=== PATIENT | female | born 1985 | race Caucasian/White ===

== ENCOUNTER 2016-09-27 21:12 | Emergency (ER) | payer OTHER | END 2016-09-27 22:08 | disposition home or self-care (01) | LOC: ER 21:12 | DX: J02.9 Acute pharyngitis, unspecified (principal); R42 Dizziness and giddiness; R05 Cough; F17.210 Nicotine dependence, cigarettes, uncomplicated | CPT/HCPCS: 87070; 87400; 87880; 99282 ==

== ENCOUNTER 2016-10-15 15:44 | Observation (INO) | payer OTHER ==
[~2016-10-15] VITALS: Ht 167.6 cm; Wt 131.0 kg
[2016-10-15 16:31] LABS: BASO % 0.2 % (0.1-1.2); EOS # 0.1 10_X3_uL (0.0-0.4); EOS % 0.7 % (0.7-5.8); GRAN # 5.4 10_X3_uL (1.6-6.1); GRAN % 66.6 % (34.0-71.1); HEMOGLOBIN 15.3 g/dL (11.2-15.7); LYMPH # 2.3 10_X3_uL (1.2-3.7); LYMPH % 27.5 % (19.3-51.7); MEAN CORPUSCULAR HEMOGLOBIN 31.7 pg (27.0-33.0); MEAN CORPUSCULAR HGB CONC 34.8 g/dL (32.0-36.0); MEAN CORPUSCULAR VOLUME 91.3 fL (79-95); MEAN PLATELET VOLUME 9.9 fl (7.5-11.5); MONO # 0.4 10_X3_uL (0.2-0.9); PLATELET COUNT 207 x10_3/uL (182-369); RED BLOOD COUNT 4.82 x10_6/uL (3.9-5.2); RED CELL DISTRIBUTION WIDTH 13.7 % (11.7-14.4); WHITE BLOOD COUNT 8.2 x10_3/uL (4.0-10.0)
[2016-10-15 16:48] LABS: ALBUMIN 3.8 gm/dL (3.4-5.0); ALKALINE PHOSPHATASE 65 U/L (50-136); ALT/SGPT 47 U/L (3.5-33.9); AST/SGOT 34 U/L (7.04-26.96); BILIRUBIN,TOTAL 0.43 mg/dL (0.0-1.0); BLOOD UREA NITROGEN 10 mg/dL (7-18); CALCIUM 9.1 mg/dL (8.7-10.7); CARBON DIOXIDE 23 mmol/L (21-32); CREATININE 0.7 mg/dL (0.6-1.3); GLUCOSE,RANDOM 138 mg/dL (70-99); POTASSIUM 4.2 mmol/L (3.5-5.1); SODIUM 136 mmol/L (136-145); TOTAL PROTEIN 7.1 gm/dL (6.4-8.2)
[2016-10-17 06:41] LABS: BASO % 0.1 % (0.1-1.2); EOS # 0.1 10_X3_uL (0.0-0.4); EOS % 1.4 % (0.7-5.8); GRAN # 4.6 10_X3_uL (1.6-6.1); GRAN % 64.3 % (34.0-71.1); HEMATOCRIT 38.2 % (34-45); HEMOGLOBIN 12.7 g/dL (11.2-15.7); LYMPH # 2.1 10_X3_uL (1.2-3.7); LYMPH % 29.5 % (19.3-51.7); MEAN CORPUSCULAR HEMOGLOBIN 31.3 pg (27.0-33.0); MEAN CORPUSCULAR HGB CONC 33.2 g/dL (32.0-36.0); MEAN CORPUSCULAR VOLUME 94.1 fL (79-95); MEAN PLATELET VOLUME 10.4 fl (7.5-11.5); MONO # 0.3 10_X3_uL (0.2-0.9); MONO % 4.7 % (4.7-12.5); PLATELET COUNT 162 x10_3/uL (182-369); RED BLOOD COUNT 4.06 x10_6/uL (3.9-5.2); RED CELL DISTRIBUTION WIDTH 13.8 % (11.7-14.4); WHITE BLOOD COUNT 7.1 x10_3/uL (4.0-10.0)
[2016-10-17 06:49] LABS: ALBUMIN 3.1 gm/dL (3.4-5.0); ALKALINE PHOSPHATASE 50 U/L (50-136); ALT/SGPT 32 U/L (3.5-33.9); AST/SGOT 24 U/L (7.04-26.96); CARBON DIOXIDE 22 mmol/L (21-32); CREATININE 0.5 mg/dL (0.6-1.3); GLUCOSE,RANDOM 93 mg/dL (70-99); POTASSIUM 3.9 mmol/L (3.5-5.1); SODIUM 140 mmol/L (136-145)
[2016-10-17 06:55] LABS: BLOOD UREA NITROGEN 6 mg/dL (7-18)
[2016-10-17 18:24] LABS: URINE BILIRUBIN NEGATIVE (NEGATIVE); URINE BLOOD NEGATIVE (NEGATIVE); URINE GLUCOSE (UA) NORMAL (NORMAL); URINE KETONE NEGATIVE (NEGATIVE); URINE LEUKOCYTE ESTERASE TRACE (NEGATIVE); URINE NITRATE NEGATIVE (NEGATIVE); URINE PROTEIN NEGATIVE (NEGATIVE); UROBILINOGEN NORMAL mg/dL (<1.0)
[2016-10-17 18:50] LABS: URINE RBC 0-5 /[HPF] (0-2); URINE WBC 0-5 /[HPF] (0-5)
[2016-10-18 06:37] LABS: HEMATOCRIT 39.2 % (34-45); HEMOGLOBIN 13.2 g/dL (11.2-15.7); MEAN CORPUSCULAR HEMOGLOBIN 31.1 pg (27.0-33.0); MEAN CORPUSCULAR HGB CONC 33.7 g/dL (32.0-36.0); MEAN CORPUSCULAR VOLUME 92.5 fL (79-95); MEAN PLATELET VOLUME 10.4 fl (7.5-11.5); RED BLOOD COUNT 4.24 x10_6/uL (3.9-5.2); RED CELL DISTRIBUTION WIDTH 13.5 % (11.7-14.4); WHITE BLOOD COUNT 8.1 x10_3/uL (4.0-10.0)
[2016-10-18 06:56] LABS: BLOOD UREA NITROGEN 10 mg/dL (7-18); CALCIUM 8.5 mg/dL (8.7-10.7); CARBON DIOXIDE 23 mmol/L (21-32); CREATININE 0.6 mg/dL (0.6-1.3); GLUCOSE,RANDOM 93 mg/dL (70-99); SODIUM 139 mmol/L (136-145)
[2016-10-19 07:32] LABS: HEMATOCRIT 43.7 % (34-45); MEAN CORPUSCULAR HEMOGLOBIN 31.4 pg (27.0-33.0); MEAN CORPUSCULAR HGB CONC 34.3 g/dL (32.0-36.0); MEAN CORPUSCULAR VOLUME 91.6 fL (79-95); MEAN PLATELET VOLUME 10.7 fl (7.5-11.5); RED BLOOD COUNT 4.77 x10_6/uL (3.9-5.2); RED CELL DISTRIBUTION WIDTH 13.3 % (11.7-14.4); WHITE BLOOD COUNT 13.7 x10_3/uL (4.0-10.0)
[2016-10-19 07:42] LABS: BLOOD UREA NITROGEN 13 mg/dL (7-18); CALCIUM 9.5 mg/dL (8.7-10.7); CARBON DIOXIDE 21 mmol/L (21-32); CREATININE 0.6 mg/dL (0.6-1.3); GLUCOSE,RANDOM 163 mg/dL (70-99); POTASSIUM 4.3 mmol/L (3.5-5.1); SODIUM 136 mmol/L (136-145)
== END 2016-10-19 14:25 | disposition home or self-care (01) ==
LOC: ER 15:44 → MS 20:26
PROVIDERS: Emergency Medicine; Family Medicine; ADMIT Family Medicine
DX: J15.7 Pneumonia due to Mycoplasma pneumoniae (principal); J45.901 Unspecified asthma with (acute) exacerbation; T38.0X5A Adverse effect of glucocorticoids and synthetic analogues, initial encounter; F41.9 Anxiety disorder, unspecified; F32.9 Major depressive disorder, single episode, unspecified; R07.81 Pleurodynia; M54.5 Low back pain; R30.0 Dysuria; R10.30 Lower abdominal pain, unspecified; K59.00 Constipation, unspecified; R73.9 Hyperglycemia, unspecified; J02.9 Acute pharyngitis, unspecified; F17.210 Nicotine dependence, cigarettes, uncomplicated; Z83.3 Family history of diabetes mellitus; Z80.9 Family history of malignant neoplasm, unspecified; Z82.49 Family history of ischemic heart disease and other diseases of the circulatory system
CPT/HCPCS: 36415; 71260; 80048; 80053; 81001; 83605; 83880; 84703; 85025; 86738; 87040; 87070; 87205; 87449; 94640; 94664; 96361; 96365; 96366; 96367; 96375; 96376; 99070; 99285-25; G0378; J2930; J7040; J7050; Q9967